=== PATIENT | female | born 1985 | race Caucasian/White ===

== ENCOUNTER 2018-11-17 12:27 | Emergency (ER) | payer OTHER ==
--- NOTE | 2018-11-17 12:57 | EDPHY ---
H & P Time Seen by Provider: 11/17/18 12:55 HPI/ROS: Chief complaint. Seeing spots left eye HPI. Patient is a 33-year-old female presents emergency department with 4 day history of black spots and slight flickering light in the left periphery of her vision of her left eye. Feels slight irritation to both eyes. No headache though feels she could have slight migraine at least at the onset. She was in [place] this week and was quite bright. She was wearing glasses most of the time but not all the time. She has no upper respiratory symptoms. No fever. No chest discomfort trouble breathing abdominal pain. No weakness or altered sensation to arms or legs. 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 The diagnosis was acute multi focal pigmentary epithelium Opti. She used steroid drops for 3 months and symptoms resolved and have never recurred. ROS 10 systems were reviewed and negative with the exception of the elements mentioned in the history of present illness The Past Medical/Surgical History: Migraines, acute multi focal pigmentary epithelial epitheliopathy Social History: , nonsmoker, no alcohol Smoking Status: Never smoked Physical Exam: General Appearance: Alert well-developed female mild distress vital signs are stable Eyes: Equal round reactive. There is no injection. Extraocular movements are intact. Funduscopic exam appears normal.. ENT, Mouth: Mucous membranes are moist. Respiratory: There are no retractions, lungs are clear to auscultation. Cardiovascular: Regular rate and rhythm. Gastrointestinal: Abdomen is soft and nontender, no masses, bowel sounds normal. Neurological: Awake and alert, sensory and motor exams grossly normal. Skin: Warm and dry, no rashes. Musculoskeletal: Neck is supple nontender. Extremities symmetrical, full range of motion. Psychiatric: Patient is oriented X 3, there is no agitation. Constitutional: Initial Vital Signs Temperature (C) 36.6 C 11/17/18 12:31 Heart Rate 61 11/17/18 12:31 Respiratory Rate 17 11/17/18 12:31 Blood Pressure 109/66 11/17/18 12:31 O2 Sat (%) 100 11/17/18 12:31 O2 Delivery Mode Room Air Allergies/Adverse Reactions: No Known Allergies Allergy (Unverified 11/17/18 12:31) Home Medications: Medication Instructions Recorded NK [No Known Home Meds] 11/17/18 Medical Decision Making Procedures: Slit-lamp exam after instilling flourescein and alcaine drops. I see no evidence for abrasion, keratitis, ulceration. Saline irrigation following exam Visual acuity right eye 20/15, left eye 20/15 ED Course/Re-evaluation: I consulted and discussed case with Dr. Mckeon for Ophthalmology. She recommends no further workup today. She will see the patient in the office on Monday and have retina specialist also see the patient. She recommends the patient call her directly this weekend for increasing flashes, floaters, eye pain. I have discussed this treatment plan with the patient. She expresses understanding and agreement Differential Diagnosis: Is possible the patient return her multi focal pigmentary epithelium apathy. Considered retinal detachment. Patient's symptoms have been stable over the past 4 days. Visual acuity is normal. I have also considered atypical migraine - Data Points Medications Given: Discontinued Medications Proparacaine HCl/Fluorescein Sodium (Flucaine) 2 drops OP EDNOW ONE Stop: 11/17/18 13:12 Last Admin: 11/17/18 13:22 Dose: 2 drop Departure - Departure Disposition: Home, Routine, Self-Care Clinical Impression: Visual changes Condition: Good Instructions: Blurred Vision (ED) Additional Instructions: If you have worsening flashes, floaters, eye pain please call jet inspector directly this . Her name is Dr.Anjali Mckeon and phone number is . Otherwise she would like to see you on Monday. Please call the office on Monday morning at same telephone number. The office address is [address] [place] [address], [place] [id number] in [place] Referrals: NONE *PRIMARY CARE P,. [Primary Care Provider] - As per Instructions Rhonda Mckeon MD [Medical Doctor] - 1-2 days without fail
[2018-11-17] MEDS ORDERED: PROPARACAINE/FLUORESCEIN SOD 5 ML OPHT.BTL OP ONE (13:11)
[2018-11-17] MEDS ORDERED: PROPARACAINE/FLUORESCEIN SOD 5 ML OPHT.BTL ONE (13:13)
[2018-11-17] MEDS ORDERED: FLUORESCEIN SODIUM 1 MG STRIP OP ONE (13:13)
[2018-11-17 13:55] VITALS: BP 114/59
== END 2018-11-17 13:55 | disposition home or self-care (01) ==
DX: H53.9 Unspecified visual disturbance (principal)

== ENCOUNTER → 2018-11-22 | Outpatient (CLI) | payer OTHER | LOC: FIMAGING 09:04 | PROVIDERS: ATTEND Ophthalmology Retina Specialist | DX: Z11.1 Encounter for screening for respiratory tuberculosis (principal) ==